=== PATIENT | male | born 2005 | race Caucasian/White ===

== ENCOUNTER 2025-09-09 08:06 | Emergency (ER) | payer BC ==
[~2025-09-09] VITALS: Ht 167.6 cm; Wt 85.0 kg
[2025-09-09 08:10] VITALS: TEMP 36.6; O2SAT 98
[2025-09-09] MEDS: IBUPROFEN 400MG TABLET PO ONE (09:15)
[2025-09-09] MEDS: HYDROCODONE/ACETAMINOPHEN 5/325MG TABLET PO ONE (09:16)
[2025-09-09] MEDS: ONDANSETRON 4MG ODT PO ONE (09:16)
[2025-09-09] MEDS ORDERED: IBUP-2028 MT (10:57)
[2025-09-09] MEDS ORDERED: LIDO-53 TP (10:57)
[2025-09-09] MEDS ORDERED: HYDR-4001 MT (10:57)
[2025-09-09 11:17] VITALS: BP 10/75; PULSE 73; RESP 16; O2SAT 99
== END 2025-09-09 11:22 | disposition home or self-care (01) ==
LOC: ER 08:06
DX: S32.038A Other fracture of third lumbar vertebra, initial encounter for closed fracture (principal); S32.028A Other fracture of second lumbar vertebra, initial encounter for closed fracture; M51.27 Other intervertebral disc displacement, lumbosacral region; Z79.899 Other long term (current) drug therapy; W10.9XXA Fall (on) (from) unspecified stairs and steps, initial encounter; Y93.89 Activity, other specified; Y92.89 Other specified places as the place of occurrence of the external cause; Y99.8 Other external cause status
CPT/HCPCS: 99284; 72131; 73502; 72100; 72192; Q0162